=== PATIENT | female | born 1975 | race Caucasian/White ===

== ENCOUNTER 2016-07-17 17:57 | Emergency (ER) | payer OTHER ==
[~2016-07-17] VITALS: Ht 167.6 cm; Wt 72.1 kg
[~2016-07-17 17:57] MED LIST: ATENOLOL25 MG PO; BCP; BENTYL20 MG PO; HYDROCHLOROTHIA25 MG PO; HYDROCHLOROTHIA50 MG PO; Hydrodiuril,Oretic,E PO; IMODIUM MS REL1 EACH PO; JUNEL FE 1/21 TABLET PO; JUNEL FE PO; Proventil,Ventolin H IH; SIMVASTATIN40 MG PO; VENLAFAXINE H37.5 MG PO; Wellbutrin XL PO; ZESTRIL,PRINIVI10 M1 PO; ZOFRAN4 MG PO; ZOLOFT50 M1 PO; Zithromax PO; predniSONE PO
[2016-07-17 19:07] LABS: HEMATOCRIT 39.4 % (36.0-46.0); MCH 29.5 PG (29.0-34.0); MCHC 33.2 G/DL (30.0-36.0); MCV 88.7 FL (83-99); MEAN PLAT.VOLUME 9.6 uM^3 (9.5-12.4); PLATELET COUNT 350 K/uL (156-360); RBC DIS.WIDTH-CV 13.1 % (11.8-14.6); RBC DIS.WIDTH-SD 41.3 % (39-53); RED BLOOD COUNT 4.44 M/uL (3.80-5.20); WHITE BLOOD COUNT 12.6 K/uL (4.1-10.2)
[2016-07-17 19:15] LABS: ADD MIUA? YES; BILIRUBIN NEGATIVE; BLOOD TRACE; COLOR YELLOW ((YELLOW)); GLUCOSE (STRIP) NEGATIVE; KETONES NEGATIVE; LEUKOCYTES NEGATIVE; NITRITE NEGATIVE; PH, URINE 7.5 (5-8); PROTEIN (STRIP) NEGATIVE; SPECIFIC GRAVITY 1.015 (1.000-1.030); UROBILINOGEN 0.2 MG/DL (0.2-1.0)
[2016-07-17 19:16] LABS: CHLORIDE 103 mEq/L (99-109); POTASSIUM 3.3 mEq/L (3.7-5.4); SODIUM 141 mEq/L (136-147)
[2016-07-17 19:19] LABS: GLUCOSE 144 mg/dL (70-99)
[2016-07-17 19:20] LABS: ANION GAP 15 MEQ/L (2-14); TOTAL BILIRUBIN 0.3 mg/dL (0.0-1.0)
[2016-07-17 19:22] LABS: ALKALINE PHOSPHATASE 66 IU/L (3-129); GFR ESTIMATE (CALCULATED) > 59 mL/min/
[2016-07-17 19:23] LABS: UREA NITROGEN (BUN) 15 mg/dL (9-23)
[2016-07-17 19:25] LABS: BACTERIA NONE SEEN; CASTS NONE SEEN /LPF; CRYSTALS NONE SEEN; EPITHELIAL CELLS RARE; MUCUS NONE SEEN; PATHOLOGICAL CAST NONE SEEN; SMALL ROUND CELL NONE SEEN; UCUL ADDED? NO; WHITE BLOOD CELLS 0-5 /HPF (0-5); YEAST-LIKE CELL NONE SEEN
[2016-07-17 19:32] LABS: TROP-I INTERPRETATION NEGATIVE; TROPONIN-I < 0.01 ng/mL (0.0-0.30)
[2016-07-17 19:43] LABS: INFLUENZA A VIRAL ANTIGEN NEGATIVE; INFLUENZA B VIRAL ANTIGEN NEGATIVE
[2016-07-17] MEDS ORDERED: VENTOLIN HFA18 GM IH (20:53)
[2016-07-17] MEDS ORDERED: PREDNISONE20 MG PO (20:53)
[2016-07-17] MEDS ORDERED: FLOXIN OTIC SOLN5 ML BOTH EARS (20:53)
[2016-07-17 21:04] VITALS: BP 142/91
== END 2016-07-17 21:18 | disposition home or self-care (01) ==
LOC: EME 17:57
PROVIDERS: Nurse Practitioner Family
DX: J06.9 Acute upper respiratory infection, unspecified (principal); H92.03 Otalgia, bilateral; R07.9 Chest pain, unspecified
CPT/HCPCS: 71020; 80053; 81003; 84484; 85027; 87502; 93005; 94640; 99281; 99284

== ENCOUNTER 2018-02-04 11:59 | Observation (INO) | payer OTHER ==
[~2018-02-04] VITALS: Ht 170.2 cm; Wt 75.7 kg
[~2018-02-04 11:59] MED LIST changes: +FLOXIN OTIC SOLN5 ML BOTH EARS; +PREDNISONE20 MG PO; -VENLAFAXINE H37.5 MG PO; +VENLAFAXINE HC150 M1 PO; +VENTOLIN HFA18 GM IH
[2018-02-04 12:41] LABS: HEMATOCRIT 39.8 % (36.0-46.0); HEMOGLOBIN 13.6 G/DL (11.9-15.5); MCH 30.8 PG (29.0-34.0); MCHC 34.2 G/DL (30.0-36.0); PLATELET COUNT 358 K/uL (156-360); RBC DIS.WIDTH-CV 12.9 % (11.8-14.6); RBC DIS.WIDTH-SD 42.4 % (39-53); RED BLOOD COUNT 4.42 M/uL (3.80-5.20); WHITE BLOOD COUNT 6.1 K/uL (4.1-10.2)
[2018-02-04 12:48] LABS: CHLORIDE 103 mEq/L (99-109); POTASSIUM 3.7 mEq/L (3.7-5.4); SODIUM 138 mEq/L (136-147)
[2018-02-04 12:50] LABS: GLUCOSE 132 mg/dL (70-99)
[2018-02-04 12:54] LABS: CREATININE 0.8 mg/dL (0.6-1.3); GFR ESTIMATE (CALCULATED) > 59 mL/min/
[2018-02-04 12:55] LABS: UREA NITROGEN (BUN) 17 mg/dL (9-23)
[2018-02-04 13:00] LABS: TROP-I INTERPRETATION NEGATIVE; TROPONIN-I < 0.01 ng/mL (0.0-0.30)
[2018-02-04 13:02] LABS: QUANTITATIVE HCG < 4.0 MIU/ML
[2018-02-04 13:36] LABS: D-DIMER ELISA < 150.00 ng/mLDDU (<230)
[2018-02-04] MEDS ORDERED: BAYER CHEWABLE81 MG PO (14:15)
[2018-02-04] MEDS ORDERED: ADVIL,NUPRIN,M200 MG PO (14:16)
[2018-02-04] MEDS ORDERED: TYLENOL REGULA325 MG PO (14:16)
[2018-02-04 16:04] VITALS: BP 129/89
[2018-02-04 19:13] LABS: TROP-I INTERPRETATION NEGATIVE; TROPONIN-I < 0.01 ng/mL (0.0-0.30)
[2018-02-04 19:51] VITALS: BP 138/88
[2018-02-05 00:03] VITALS: BP 127/78
[2018-02-05 01:19] LABS: TROP-I INTERPRETATION NEGATIVE; TROPONIN-I < 0.01 ng/mL (0.0-0.30)
[2018-02-05 03:53] VITALS: BP 124/78
[2018-02-05 05:46] LABS: CHLORIDE 101 MEQ/L (99-109); CREATININE 0.7 MG/DL (0.6-1.3); GFR ESTIMATE (CALCULATED) > 59 mL/min/; POTASSIUM 4.4 MEQ/L (3.7-5.4); SODIUM 136 MEQ/L (136-147); UREA NITROGEN (BUN) 13 mg/dL (9-23)
[2018-02-05 05:49] LABS: GLUCOSE 92 mg/dL (70-99)
[2018-02-05 07:57] VITALS: BP 140/81
[2018-02-05 11:32] VITALS: BP 153/89
[2018-02-05] MEDS ORDERED: ASPIR-LOW81 MG PO (11:49)
== END 2018-02-05 12:28 | disposition home or self-care (01) ==
LOC: EME 11:59 → EDOF 14:53 → 4SOUTH 15:42
PROVIDERS: Hospitalist
DX: R07.9 Chest pain, unspecified (principal); I10 Essential (primary) hypertension; E78.5 Hyperlipidemia, unspecified; F41.9 Anxiety disorder, unspecified; M79.602 Pain in left arm; E87.1 Hypo-osmolality and hyponatremia; R61 Generalized hyperhidrosis; H92.03 Otalgia, bilateral; R06.02 Shortness of breath; R51 Headache; Z88.1 Allergy status to other antibiotic agents; Z88.5 Allergy status to narcotic agent
CPT/HCPCS: 71046; 80048; 84484; 84702; 85027; 85379; 93005; 99281; 99285; G0378; J7030